=== PATIENT | male | born 1995 | race Caucasian/White ===

== ENCOUNTER 2018-05-07 13:59 | Emergency (ER) | payer OTHER ==
[~2018-05-07] VITALS: Ht 170.2 cm; Wt 83.5 kg
[2018-05-07 14:06] VITALS: Ht 170.2 cm; Wt 83.5 kg
[2018-05-07 14:47] VITALS: BP 163/90
== END 2018-05-07 14:47 | disposition home or self-care (01) ==
LOC: ED 13:59
DX: F41.9 Anxiety disorder, unspecified (principal)